=== PATIENT | female | born 1945 | race Caucasian/White ===

== ENCOUNTER 2017-11-27 15:12 | Emergency (ER) | payer OTHER ==
[~2017-11-27] VITALS: Ht 157.5 cm; Wt 70.3 kg
[~2017-11-27 15:12] MED LIST: DUONEB; GINGER ROOT; LOSARTAN POTAS100 MG PO; NIACIN500 M2 PO; TUMERIC; VITAMIN B-121000 MCG PO; VITAMIN D35000 UNI1; XARELTO20 MG; [UNRECOGNIZED DRUG - OTHER] NEB
[2017-11-27] MEDS ORDERED: CLONIDINE HCL 0.1 MG TAB PO NR (15:45)
[2017-11-27 16:27] LABS: BILIRUBIN,URINE NEGATIVE (NEGATIVE); CLARITY,URINE CLEAR (CLEAR); COLOR,URINE YELLOW (YELLOW); KETONES,URINE NEGATIVE (NEGATIVE); LEUKOCYTE ESTERASE ,URINE 2+ (NEGATIVE); NITRITE,URINE NEGATIVE (NEGATIVE); PROTEIN,URINE DIPSTICK NEGATIVE (NEGATIVE); URINE UROBILINOGEN 0.2 mg/dL (0.2 - 1)
[2017-11-27 16:52] LABS: RBC,URINE 0-5 /HPF (0-5)
[2017-11-27 16:54] LABS: BACTERIA,URINE FEW /HPF; EPITHELIAL CELLS,URINE MODERATE /LPF
[2017-11-27 17:15] VITALS: BP 143/73
== END 2017-11-27 17:52 | disposition home or self-care (01) ==
LOC: ER 15:12
DX: R51 Headache (principal); I10 Essential (primary) hypertension; E11.9 Type 2 diabetes mellitus without complications; J44.9 Chronic obstructive pulmonary disease, unspecified; Z86.73 Personal history of transient ischemic attack (TIA), and cerebral infarction without residual deficits
CPT/HCPCS: 81001; 99283

== ENCOUNTER 2017-12-15 06:31 | Inpatient (IN) | payer MEDICARE, OTHER ==
[2017-12-12 13:37] LABS: BASOPHILS # (AUTO) 0.1 (0.0-0.1); BASOPHILS % 0.7 % (0.0-1.0); EOSINOPHILS # (AUTO) 0.1 (0.0-0.4); EOSINOPHILS % 1.5 % (0.0-6.0); HEMATOCRIT 41.7 % (34.2-44.1); HEMOGLOBIN 13.4 g/dL (12.0-16.0); LYMPHOCYTES # (AUTO) 2.1 (1.0-3.2); LYMPHOCYTES % 24.4 % (18.0-39.1); MEAN CORPUSCULAR HEMOGLOBIN 31.5 pg (28-32); MEAN CORPUSCULAR HGB CONC 32.1 g/dL (31-35); MEAN CORPUSCULAR VOLUME 97.9 fL (81-99); MONOCYTES # (AUTO) 0.7 (0.2-0.8); MONOCYTES % 8.3 % (4.4-11.3); NEUTROPHILS # (AUTO) 5.5 (2.1-6.9); NEUTROPHILS % 64.5 % (38.7-80.0); PLATELET COUNT 192 x10e3/uL (140-360); RED BLOOD COUNT 4.26 x10e6/uL (3.6-5.1); RED CELL DISTRIBUTION WIDTH 13.5 % (11.7-14.4)
[2017-12-12 13:45] LABS: INR 1.61
[2017-12-12 13:46] LABS: PARTIAL THROMBOPLASTIN TIME 33.4 seconds (23.8-35.5)
[2017-12-12 13:51] LABS: ANION GAP 14.1 mmol/L (8-16); CREATININE, SERUM 1.26 mg/dL (0.57-1.11); POTASSIUM 4.1 mmol/L (3.5-5.1)
--- NOTE | 2017-12-12 14:37 | Diagnostic Imaging Report ---
PROCEDURE: X-RAY CHEST, TWO VIEWS COMPARISON: Patients [facility], DX, CHEST 2 VIEWS, 03/10/2017, 10:49. INDICATIONS: CAROTID STENOSIS FINDINGS: LUNGS: Stable pulmonary hyperinflation. No mass or infiltrate. PLEURA: No effusions or pneumothorax. Bilateral apical pleural parenchymal thickening is stable. HEART \T\ MEDIASTINUM: The heart is within normal size-limits. Calcifications of the aortic arch are stable. BONES \T\ SOFT TISSUES: Diffuse demineralization. Degenerative changes of the spine are stable. No focal osseous lesions. CONCLUSION: Stable chest. No acute thoracic abnormality. Dictated by: Emili Azevedo M.D. on 12/12/2017 at 14:37 Electronically approved by: Emili Azevedo M.D. on 12/12/2017 at 14:37
[2017-12-15] VITALS (26 sets, daily range): BP systolic 115–183; BP diastolic 55–96
[~2017-12-15] VITALS: Ht 154.9 cm; Wt 70.3 kg
[~2017-12-15 06:31] MED LIST changes: +ASPIRIN81 MG; +CURCUMIN1 GM; +D-RIBOSE1 GM; +GELATIN SPONGE SZ 100 ONE; +GLUTATHIONE25 GM; +HEPARIN SOD (PORCINE) 1000 UNIT/ML 30ML ONE; +HEPARIN SOD/SOD CHLORIDE 1,000 ML ONE; +LIDOCAINE HCL 1% 2 ML AMP ONE; +LISINOPRIL10 MG PO; +MUPIROCIN 2% OINT 22 GM TUBE ONE; +PROTAMINE SULFATE 10 MG/ML 5 ML VIAL ONE; +SODIUM CHLORIDE 0.9% 500ML 500 ML ONE; +SYMBICORT 16010.2 GM; +THROMBIN FOR SOLN 5,000 UNIT VIAL ONE; +VITAMIN A25000 UNIT; +[UNRECOGNIZED DRUG - OTHER]
--- OUTSIDE RECORDS SUMMARY | 2017-12-15 06:34 | XMS REPORT ---
Author [facility] Address Unknown Phone Unavailable Care Team Providers Care Dry Heat Cabinet Attendant Name Role Phone MARIS SHINE Unavailable Unavailable Problems This patient has no known problems. Allergies, Adverse Reactions, Alerts This patient has no known allergies or adverse reactions. Medications This patient has no known medications. Results Test Description Test Time Test Comments Text Results Atomic Results Result Comments CHEST 2 VIEWS [place] [address] Patient Name: PIERRE KAPOOR MR #: [id number] : 1945 Age/Sex: 72/F Req #: [id number] Adm Physician: Ordered by: MARIS SHINE MD Report #: [id number] Location: OR Room/Bed: Procedure: [id number] DX/CHEST 2 VIEWS Exam Date: 12/12/17 Exam Time: 1250 REPORT STATUS: Signed PROCEDURE: X-RAY CHEST, TWO VIEWS COMPARISON: [facility], DX, CHEST 2 VIEWS, 03/10/2017, 10:49. INDICATIONS: CAROTID STENOSIS FINDINGS: LUNGS: Stable pulmonary hyperinflation. No mass or infiltrate. PLEURA: No effusions or pneumothorax. Bilateral apical pleural parenchymal thickening is stable. HEART T MEDIASTINUM: The heart is within normal size-limits. Calcifications of the aortic arch are stable. BONES T SOFT TISSUES : Diffuse demineralization. Degenerative changes of the spine are stable. No focal osseous lesions. CONCLUSION: Stable chest. No acute thoracic abnormality. Dictated by: Jaspal Azevedo M.D. on 2017 at 14:37 Electronically approved by: Jaspal Azevedo M.D. on 2017 at 14:37 Dictated By: JASPAL AZEVEDO MD [id number] Transcribed By : JAMILA on 12/12/17 1437 COPY TO: MARIS SHINE MD
--- OUTSIDE RECORDS SUMMARY | 2017-12-15 06:34 | XMS REPORT | Continuity of Care Document ---
Author Author [facility] Organization [facility] Address [address] [place] [address] Phone Unavailable Care Team Providers Care Cutting Table Operator Name Role Phone SHERRYDARWIN CAMARGO PCP Insurance Providers Guarantor Sophia Nair Address [address] [place] [address] [address] [place] [address] Email [email or web address] Payer [facility] Policy Number [id number] Subscriber's Name KoreySophia sierra Relationship 18 Self / Same As Patient Group Number [id number] Group Name [employer] - Medicare Advantage Divis Effective Date 17 Advance Directives Directive Response Recorded Date/Time Does the patient have an advance directive? Yes 12/30/16 11:02am If yes, is advance directive on file with [facility]? No 12/08/15 8:26am If not on file with [facility] will patient provide a copy? No 01/19/17 10:30am Do you have a Directive to Physician? Yes 11/27/17 4:40pm Do you have a Medical Power of Social Director? Yes 11/27/17 4:40pm Do you have an out of hospital Do Not Resuscitate Order? No 11/27/17 4:40pm Do you have any special needs we should be aware of? No 11/27/17 4:40pm Do you have a support person here with you today? Yes 11/27/17 4:40pm Did patient receive Notice of Privacy Practices? Yes 11/27/17 4:40pm Did patient receive patient rights and responsibilities? Yes 11/27/17 4:40pm Problems No problem information available. Medications Current Home Medications Medication Dose Units Route Directions Days Qty Instructions Start Date Cholecalciferol (Vitamin D3) (Vitamin D3) 5,000 Unit Tablet Daily Cyanocobalamin (Vitamin B-12) 1,000 Mcg Tab 1,000 Mcg Oral Daily 30 Tab Duoneb Unit Dose Four Times Daily IPRATROPIUM 0.5 MG/ ALBUTEROL 3 MG Renetta Root 500 Mg Daily Losartan Potassium 100 Mg Tablet 100 Mg Oral Daily Niacin 500 Mg Tabsr 500 Mg Oral Daily 30 Tab Rivaroxaban (Xarelto) 20 Mg Tablet Daily Tumeric 500 Mg Daily Social History Smoking Status Start Date Stop Date Former smoker Hospital Discharge Instructions No hospital discharge instruction information available. Plan of Care Discharge Date 11/27/17 5:52pm Disposition HOME, SELF-CARE Condition at Discharge Stable Instructions/Education Provided Hypertension Urinary Tract Infection - Women Forms Provided Work/School Excuse Prescriptions See Medication Section Referrals DARWIN POWELL DO Address: [address] [place] [id number] Additional Instructions/Education 1. follow up with your doctor in 1-2 days without fail 2. return to ed as needed Functional Status No functional status information available. Allergies, Adverse Reactions, Alerts Allergen Type Severity Reaction Status Last Updated Lisinopril Allergy Unknown nasal airway swelling Active 11/27/17 penicillin Allergy Unknown RASH Active 01/21/17 TETANUS Allergy Unknown SWELLING, REDNESS Active 01/21/17 Immunizations No immunization information available. Vital Signs Acute Vital Signs Vital Response Date/Time Pulse Pulse Rate (adult) 65 bpm (60 - 90) 11/27/2017 5:15pm Respiratory Rate 18 bpm (12 - 24) 11/27/2017 5:15pm Blood Pressure 143/73 mm Hg 11/27/2017 5:15pm Height 5 ft 2 in 11/27/2017 3:20pm Weight 155 lb 11/27/2017 3:20pm Body Mass Index 28.3 kg/m^2 11/27/2017 3:20pm Results Laboratory Results Test Name Result Units Flags Reference Collection Date/Time Result Date/ Time Comments White Blood Count 6.38 x10e3/uL 4.8-10.8 03/10/2017 10:45am 03/10/2017 10:53am Red Blood Count 3.87 x10e6/uL 3.6-5.1 03/10/2017 10:45am 03/10/2017 10: 53am Hemoglobin 12.8 g/dL 12.0-16.0 03/10/2017 10:4503/10/2017 10:53am Hematocrit 38.5 % 34.2-44.1 03/10/2017 10:45am 03/10/2017 10:53am Mean Corpuscular Volume 99.5 fL H 81-99 03/10/2017 10:45am 03/10/2017 10 :53am Mean Corpuscular Hemoglobin 33.1 pg H 28-32 03/10/2017 10:45am 2016 10:53am Mean Corpuscular Hemoglobin Concent 33.2 g/dL 31-35 03/10/2017 10:45am 03/10/2017 10:53am Red Cell Distribution Width 13.3 % 11.7-14.4 03/10/2017 10:45am 2016 10:53am Platelet Count 178 x10e3/uL 140-360 03/10/2017 10:45am 03/10/2017 10: 53am Neutrophils (%) (Auto) 56.3 % 38.7-80.0 03/10/2017 10:45am 03/10/2017 10:53am Lymphocytes (%) (Auto) 30.4 % 18.0-39.1 03/10/2017 10:4503/10/2017 10:53am Monocytes (%) (Auto) 9.9 % 4.4-11.3 03/10/2017 10:4503/10/2017 10: 53am Eosinophils (%) (Auto) 2.2 % 0.0-6.0 03/10/2017 10:4503/10/2017 10: 53am Basophils (%) (Auto) 0.9 % 0.0-1.0 03/10/2017 10:45am 03/10/2017 10: 53am IM GRANULOCYTES % 0.3 % 0.0-1.0 03/10/2017 10:45am 03/10/2017 10:53am Neutrophils # (Auto) 3.6 2.1-6.9 03/10/2017 10:45am 03/10/2017 10: 53am Lymphocytes # (Auto) 1.9 1.0-3.2 03/10/2017 10:45am 03/10/2017 10: 53am Monocytes # (Auto) 0.6 0.2-0.8 03/10/2017 10:45am 03/10/2017 10:53am Eosinophils # (Auto) 0.1 0.0-0.4 03/10/2017 10:45am 03/10/2017 10: 53am Basophils # (Auto) 0.1 0.0-0.1 03/10/2017 10:45am 03/10/2017 10:53am Absolute Immature Granulocyte (auto 0.02 x10e3/uL 0-0.1 03/10/2017 10: 45am 03/10/2017 10:53am Prothrombin Time 13.0 seconds 11.9-14.5 03/14/2017 5:51am 03/14/2017 6: 13am Prothromb Time International Ratio 0.94 03/14/2017 5:51am 2016 6:13am Oral Anticoagulant Therapy INR Values: 1. Low Intensity Therapy 1.5 - 2.0 2. Moderate Intensity Therapy 2.0 - 3.0 3. High Intensity Therapy(1) 2.5 - 3.5 4. High Intensity Therapy(2) 3.0 - 4.0 5. Panic Value INR > 5.0 Activated Partial Thromboplast Time 29.7 seconds 23.8-35.5 03/14/2017 5: 51am 03/14/2017 6:13am Urine Color YELLOW YELLOW 11/27/2017 3:42pm 11/27/2017 4:29pm Urine Clarity CLEAR CLEAR 11/27/2017 3:42pm 11/27/2017 4:29pm Urine Specific Josephine 1.015 1.010-1.025 11/27/2017 3:42pm 2017 4:29pm Urine pH 5 5 - 7 11/27/2017 3:42pm 11/27/2017 4:29pm Urine Leukocyte Esterase 2+ H NEGATIVE 11/27/2017 3:42pm 11/27/2017 4: 29pm Urine Nitrite NEGATIVE NEGATIVE 11/27/2017 3:42pm 11/27/2017 4:29pm Urine Protein NEGATIVE NEGATIVE 11/27/2017 3:42pm 11/27/2017 4:29pm Urine Glucose (UA) NEGATIVE NEGATIVE 11/27/2017 3:42pm 11/27/2017 4: 29pm Urine Ketones NEGATIVE NEGATIVE 11/27/2017 3:42pm 11/27/2017 4:29pm Urine Urobilinogen 0.2 mg/dL 0.2 - 1 11/27/2017 3:42pm 11/27/2017 4: 29pm Urine Bilirubin NEGATIVE NEGATIVE 11/27/2017 3:42pm 11/27/2017 4: 29pm Urine Blood TRACE H NEGATIVE 11/27/2017 3:42pm 11/27/2017 4:29pm Urine WBC 11-20 /HPF H 0-5 11/27/2017 3:42pm 11/27/2017 4:54pm Urine RBC 0-5 /HPF 0-5 11/27/2017 3:42pm 11/27/2017 4:54pm Urine Bacteria FEW /HPF NONE 11/27/2017 3:42pm 11/27/2017 4:54pm Urine Epithelial Cells MODERATE /LPF NONE 11/27/2017 3:42pm 11/27/2017 4:54pm Procedures Procedure Status Date Provider(s) SHOULDER ARTHROSCOPY/SURGERY Completed 03/14/17 JOÃO TYSON MD ARTHROSCOP ROTATOR CUFF REPR Completed 03/14/17 JOÃO TYSON MD X-ray of chest, two views Active 03/10/17 JOÃO TYSON MD Encounters Encounter Location Arrival/Admit Date Discharge/Depart Date Attending Provider Departed Emergency Room [facility] 11/27/17 3:12pm 5:52pm JOÃO KUMARI MD Registered Surgical Day Care [facility] 03/14/17 5:09am JOÃO TYSON MD
[2017-12-15 07:10] LABS: PROTHROMBIN TIME 12.4 seconds (11.9-14.5)
[2017-12-15] MEDS ORDERED: VANCOMYCIN 1GM/NS 250 ML 250 ML ONE (07:44)
[2017-12-15] MEDS ORDERED: LABETALOL HCL 20 ML ONE (10:57)
[2017-12-15 11:13] LABS: BASOPHILS % 0.5 % (0.0-1.0); EOSINOPHILS # (AUTO) 0.1 (0.0-0.4); EOSINOPHILS % 0.8 % (0.0-6.0); HEMATOCRIT 32.8 % (34.2-44.1); HEMOGLOBIN 10.7 g/dL (12.0-16.0); LYMPHOCYTES % 11.6 % (18.0-39.1); MEAN CORPUSCULAR HGB CONC 32.6 g/dL (31-35); MEAN CORPUSCULAR VOLUME 98.2 fL (81-99); MONOCYTES # (AUTO) 0.2 (0.2-0.8); MONOCYTES % 2.7 % (4.4-11.3); NEUTROPHILS # (AUTO) 7.1 (2.1-6.9); NEUTROPHILS % 83.7 % (38.7-80.0); PLATELET COUNT 157 x10e3/uL (140-360); RED BLOOD COUNT 3.34 x10e6/uL (3.6-5.1); RED CELL DISTRIBUTION WIDTH 13.4 % (11.7-14.4)
[2017-12-15] MEDS ORDERED: MORPHINE SULFATE 2 MG/ML SYR IV PRN (11:15)
[2017-12-15] MEDS ORDERED: HYDROCODONE/APAP 5MG-325MG TAB PO PRN (11:15)
[2017-12-15] MEDS ORDERED: LABETALOL HCL 5 MG/ML 20ML VIAL IV PRN (11:15)
[2017-12-15 11:35] LABS: ANION GAP 11.1 mmol/L (8-16)
[2017-12-15 11:37] LABS: POTASSIUM 5.1 mmol/L (3.5-5.1)
[2017-12-15] MEDS: SODIUM CHLORIDE 0.9% 1000ML 1,000 ML IV SCH (12:00)
--- NOTE | 2017-12-15 12:37 | Operative Report ---
DATE OF PROCEDURE: December 15, 2017 STEEL CRANE OPERATOR: Francesco Harris CST PREOPERATIVE DIAGNOSIS: Severe left carotid stenosis. POSTOPERATIVE DIAGNOSIS: Severe left carotid stenosis. TITLE OF OPERATION: Left carotid endarterectomy. DESCRIPTION OF OPERATION: After the satisfactory accomplishment of general anesthesia, the patient's left neck was prepped and draped in sterile fashion. A standard left carotid incision was made along the anterior border of the sternomastoid muscle. The incision was carried down through the subcutaneous tissues and fascia to expose the left common carotid artery. The vessel was dissected free from the surrounding tissues and looped with a vessel loop. The dissection was carried distally to expose both the internal carotid artery and the external carotid artery and its branches. Care was taken to identify and preserve all nerve structures in the region. Systemic heparin was given through a central vein cannula for the purposes of anticoagulation. The common, external and internal carotid arteries were briefly crossclamped. A long incision was made in the common carotid artery and carried distally through the bifurcation and well up into the internal carotid artery. A severely obstructing atherosclerotic plaque was quickly encountered. The plaque was removed using standard endarterectomy techniques. Following the removal of the plaque, an indwelling shunt was placed in the common carotid artery proximally and the internal carotid artery distally, thereby reestablishing blood flow to the left side of the brain for the remainder of the case. The surface of the vessel was then carefully smoothed, and all loose debris was removed. Heparinized saline flushes were routinely employed. A previously constructed Dacron patch was brought into the operative field. The patch was used to close the arteriotomy site. Running 7-0 Prolene was used for this patch closure. Prior to completing the closure, the shunt was removed and the vessel and graft were flushed free from all air and debris. Once the sutures were tied, excellent pulses were located within the patch area and beyond. Protamine was then given to counteract the effects of the heparin. All bleeding points were cauterized, ligated or oversewn. The wound was thoroughly irrigated with antibiotic solution. The wound was then closed in layers with interrupted 2-0 Vicryl for the deep tissues and Monocryl subcuticular stitches for the skin. The patient tolerated the procedure well and was returned to the intensive care unit in good condition. Job#: [id number] EV
[2017-12-15] MEDS ORDERED: LISINOPRIL20 MG PO (13:58)
[2017-12-15] MEDS: LISINOPRIL 20 MG TAB PO SCH (14:59)
[2017-12-15] MEDS ORDERED: MIDAZOLAM HCL 2 MG/2 ML VIAL ONE (15:04)
[2017-12-15] MEDS ORDERED: FENTANYL CITRATE/PF 100MCG/2 ML INJ ONE (15:04)
--- NOTE | 2017-12-15 16:43 | Consultation ---
DATE OF CONSULTATION: December 15, 2017 PULMONARY/CRITICAL CARE CONSULTATION REFERRING PHYSICIAN: Dr. Haines. CHIEF COMPLAINT: A prior history of COPD and recent carotid endarterectomy. HISTORY OF PRESENT ILLNESS: The patient is a 72-year-old woman. She has a history of severe COPD. She also has peripheral vascular disease as well as carotid stenosis. She presented to Dr. Haines with intermittent numbness and severe carotid stenosis. She underwent a carotid endarterectomy today. The procedure went well. She did not have any excessive blood loss. She has no neurological complaints. At this time her breathing is at baseline. She is not complaining of cough nor wheezing. She does not complain of chest pain. PAST MEDICAL HISTORY: 1. Peripheral vascular disease. 2. COPD. PAST SURGICAL HISTORY: Status post carotid endarterectomy. SOCIAL HISTORY: The patient is not actively smoking nor drinking. FAMILY HISTORY: Family history is noncontributory. REVIEW OF SYSTEMS: The patient is afebrile. There is no headache. She is complaining of some mild postsurgical pain at the surgical site. She does not have chest pain. There is no abdominal pain. Her dyspnea is at baseline. She has no leg edema. PHYSICAL EXAMINATION: VITAL SIGNS: The patient is afebrile. The vital signs are stable. HEENT: Examination shows no facial swelling or erythema. The nasal mucosa is normal. The oropharynx is normal. LYMPHATIC: Examination shows no submandibular, cervical or supraclavicular adenopathy. CARDIAC: Exam reveals a regular rate and rhythm with a normal S1 and S2. There are no murmurs or rubs. LUNGS: Auscultation reveals rhonchorous breath sounds bilaterally. There is no wheezing. ABDOMEN: Is soft and nontender. There is no rebound or guarding. EXTREMITIES: Shows no leg edema or calf tenderness. There is no cyanosis or clubbing. SKIN: Examination shows no rashes. NEUROLOGIC: Exam shows no focal abnormalities. LABORATORY DATA: The hemoglobin is 10.7, and the white blood cell count is 8.4. Electrolytes are within normal limits. IMPRESSIONS: 1. Chronic obstructive pulmonary disease. 2. Recent carotid endarterectomy. 3. Hypertension. PLAN: 1. The patient will be continued on Symbicort twice a day. 2. She will have albuterol as needed as a rescue medication. 3. Postoperative wound care. 4. Neurological monitoring after her carotid endarterectomy. 5. Monitor blood pressure. Job#: [id number] EV
[2017-12-15] MEDS ORDERED: VANCOMYCIN 1GM/NS 250 ML 250 ML IV ONE (18:00)
[2017-12-15] MEDS ORDERED: EPHEDRINE SULFATE INJ 50 MG/10 ML SYR ONE (18:29)
[2017-12-15] MEDS ORDERED: PROPOFOL IV EMULSION 10 MG/ML 20 ML VIAL ONE (18:29)
[2017-12-15] MEDS ORDERED: ONDANSETRON HCL INJ 2 MG/ML VIAL ONE (18:29)
[2017-12-15] MEDS ORDERED: ROCURONIUM BROMIDE 10 MG/ML 5ML VIAL ONE (18:29)
[2017-12-15] MEDS ORDERED: SEVOFLURANE INHAL SOLN 250 ML PEN BTL ONE (18:29)
[2017-12-15] MEDS ORDERED: DEXAMETHASONE SOD PHOS INJ 4 MG/ML VIAL ONE (18:29)
[2017-12-15] MEDS ORDERED: PHENYLEPHRINE HCL 1% 10 MG/ML VIAL ONE (18:29)
[2017-12-15] MEDS ORDERED: LIDOCAINE HCL 2% LOCAL INJ 5 ML SDV VIAL INJ ONE (18:29)
[2017-12-15] MEDS: BUDESONIDE/FORMOTEROL 160/4.5MCG INHALER INH SCH (19:00)
[2017-12-15] MEDS: ALBUTEROL SULF 0.083% NEB SOLN 3 ML NEB NEB PRN (19:45)
[2017-12-15] MEDS ORDERED: RIVAROXABAN 20 MG TABLET PO SCH (21:00)
[2017-12-16] VITALS (20 sets, daily range): BP systolic 117–159; BP diastolic 53–86
[2017-12-16 06:05] LABS: BASOPHILS % 0.3 % (0.0-1.0); EOSINOPHILS % 0.4 % (0.0-6.0); HEMATOCRIT 34.7 % (34.2-44.1); HEMOGLOBIN 11.2 g/dL (12.0-16.0); LYMPHOCYTES % 18.1 % (18.0-39.1); MEAN CORPUSCULAR HEMOGLOBIN 32.2 pg (28-32); MEAN CORPUSCULAR HGB CONC 32.3 g/dL (31-35); MEAN CORPUSCULAR VOLUME 99.7 fL (81-99); MONOCYTES # (AUTO) 1.1 (0.2-0.8); MONOCYTES % 9.6 % (4.4-11.3); NEUTROPHILS # (AUTO) 7.8 (2.1-6.9); NEUTROPHILS % 71.2 % (38.7-80.0); PLATELET COUNT 163 x10e3/uL (140-360); RED BLOOD COUNT 3.48 x10e6/uL (3.6-5.1); RED CELL DISTRIBUTION WIDTH 13.5 % (11.7-14.4)
[2017-12-16 06:36] LABS: ANION GAP 11.3 mmol/L (8-16); BLOOD UREA NITROGEN 19 mg/dL (7-26); BUN/CREATININE RATIO 23 (6-25); CALCIUM 8.7 mg/dL (8.4-10.2); CARBON DIOXIDE 25 mmol/L (22-29); CHLORIDE 106 mmol/L (98-107); CREATININE, SERUM 0.82 mg/dL (0.57-1.11); EST GLOMERULAR FILTRATION RATE > 60 ML/MIN (60-); GLUCOSE 121 mg/dL (74-118); POTASSIUM 4.3 mmol/L (3.5-5.1); SODIUM 138 mmol/L (136-145)
[2017-12-16] MEDS: SODIUM CHLORIDE 0.9% 1000ML 1,000 ML IV SCH ×2 (08:00→10:15)
[2017-12-16] MEDS ORDERED: NIACIN 500 MG TABSR PO SCH (09:00)
[2017-12-16] MEDS ORDERED: CYANOCOBALAMIN 1,000 MCG TAB PO SCH (09:00)
[2017-12-16] MEDS ORDERED: RIVAROXABAN 15 MG TABLET PO SCH (09:00)
[2017-12-16] MEDS ORDERED: ENOXAPARIN SOD INJ 40 MG/0.4 ML SYR SC SCH (09:00)
[2017-12-16] MEDS ORDERED: ASPIRIN 81 MG CHEW TAB PO SCH (09:00)
[2017-12-16] MEDS: LISINOPRIL 20 MG TAB PO SCH (10:16)
[2017-12-16] MEDS: ALBUTEROL SULF 0.083% NEB SOLN 3 ML NEB NEB PRN (13:52)
[2017-12-16] MEDS: BUDESONIDE/FORMOTEROL 160/4.5MCG INHALER INH SCH (15:16)
[2017-12-16] MEDS ORDERED: MUPIROCIN 2% OINT 22 GM TUBE TOP SCH (17:00)
--- NOTE | 2018-02-22 09:00 | Discharge Summary ---
Ms. Nair is a 72-year-old female who was admitted electively on December 15, 2017 with severe left carotid stenosis. On the date of her admission, she underwent an uncomplicated left carotid endarterectomy using a shunt and a Dacron patch for the closure of the artery. She made a smooth and uneventful recovery. She spent 1 day in the intensive care unit, and on the afternoon of December 16, 2017, she was deemed ready for discharge home from the hospital. Her wounds were satisfactory and her pain was well managed. Her diet and exercise tolerance were back to normal. Her discharge medicines included the same medicines she was taking preoperatively. She was asked to return to the surgery clinic in 2 weeks' time for further followup. MARIS SHINE MD Job#: [id number]
== END 2017-12-16 19:00 | disposition home or self-care (01) | DRG 39 ==
LOC: OR 06:31 → ICU 11:18
PROVIDERS: ADMIT Thoracic Surgery (Cardiothoracic Vascular Surgery); ATTEND Thoracic Surgery (Cardiothoracic Vascular Surgery)
PROC: 03CJ0ZZ Extirpation of Matter from Left Common Carotid Artery, Open Approach (ICD-10-PCS; principal; 2017-12-15 07:30)
DX: I65.22 Occlusion and stenosis of left carotid artery (principal); J44.9 Chronic obstructive pulmonary disease, unspecified; I10 Essential (primary) hypertension; F17.210 Nicotine dependence, cigarettes, uncomplicated; E66.9 Obesity, unspecified; Z68.29 Body mass index [BMI] 29.0-29.9, adult
CPT/HCPCS: 36415; 71046; 80048; 80051; 85025; 85610; 85730; 86850; 86900; 86920; 88304; 88311; 93005; 94640; C1768; J1100; J1644; J2001; J2250; J2370; J2405; J2720; J3370; J7030; J7040

== ENCOUNTER 2018-08-21 05:40 | Inpatient (IN) | payer OTHER ==
[2018-08-16 11:29] LABS: BASOPHILS # (AUTO) 0.1 (0.0-0.1); BASOPHILS % 0.6 % (0.0-1.0); EOSINOPHILS # (AUTO) 0.1 (0.0-0.4); EOSINOPHILS % 1.1 % (0.0-6.0); HEMATOCRIT 37.9 % (34.2-44.1); HEMOGLOBIN 12.4 g/dL (12.0-16.0); LYMPHOCYTES # (AUTO) 1.5 (1.0-3.2); LYMPHOCYTES % 17.9 % (18.0-39.1); MEAN CORPUSCULAR HEMOGLOBIN 31.5 pg (28-32); MEAN CORPUSCULAR HGB CONC 32.7 g/dL (31-35); MEAN CORPUSCULAR VOLUME 96.2 fL (81-99); MONOCYTES # (AUTO) 0.7 (0.2-0.8); MONOCYTES % 8.4 % (4.4-11.3); NEUTROPHILS # (AUTO) 5.7 (2.1-6.9); NEUTROPHILS % 71.1 % (38.7-80.0); PLATELET COUNT 195 x10e3/uL (140-360); RED BLOOD COUNT 3.94 x10e6/uL (3.6-5.1); RED CELL DISTRIBUTION WIDTH 13.4 % (11.7-14.4)
[2018-08-16 11:32] LABS: INR 1.73; PROTHROMBIN TIME 21.6 seconds (11.9-14.5)
[2018-08-16 11:33] LABS: PARTIAL THROMBOPLASTIN TIME 37.8 seconds (23.8-35.5)
[2018-08-16 11:37] LABS: ANION GAP 15.2 mmol/L (8-16); CALCIUM 10.1 mg/dL (8.4-10.2); CREATININE, SERUM 1.14 mg/dL (0.57-1.11); POTASSIUM 4.2 mmol/L (3.5-5.1)
[2018-08-21] VITALS (49 sets, daily range): BP systolic 107–175; BP diastolic 40–83
[~2018-08-21] VITALS: Ht 157.5 cm; Wt 77.8 kg
[~2018-08-21 05:40] MED LIST changes: +AMLODIPINE BES2.5 MG PO; -CURCUMIN1 GM; +CURCUMIN1 GM PO; -GELATIN SPONGE SZ 100 ONE; -HEPARIN SOD (PORCINE) 1000 UNIT/ML 30ML ONE; -HEPARIN SOD/SOD CHLORIDE 1,000 ML ONE; -LIDOCAINE HCL 1% 2 ML AMP ONE; +LISINOPRIL20 MG PO; -MUPIROCIN 2% OINT 22 GM TUBE ONE; -PROTAMINE SULFATE 10 MG/ML 5 ML VIAL ONE; -SODIUM CHLORIDE 0.9% 500ML 500 ML ONE; -SYMBICORT 16010.2 GM; +SYMBICORT 16010.2 GM INH; -THROMBIN FOR SOLN 5,000 UNIT VIAL ONE; -VITAMIN D35000 UNI1; +VITAMIN D35000 UNI1 PO; +XARELTO15 MG PO
[2018-08-21] MEDS ORDERED: LIDOCAINE HCL 1% 2 ML AMP ONE (06:28)
[2018-08-21] MEDS ORDERED: MUPIROCIN 2% OINT 22 GM TUBE ONE (06:28)
[2018-08-21] MEDS ORDERED: PROTAMINE SULFATE 10 MG/ML 5 ML VIAL ONE (06:28)
[2018-08-21] MEDS ORDERED: THROMBIN FOR SOLN 5,000 UNIT VIAL ONE (06:28)
[2018-08-21] MEDS ORDERED: GELATIN SPONGE 12-7MM ONE (06:29)
[2018-08-21] MEDS ORDERED: HEPARIN SOD (PORCINE) 1000 UNIT/ML 30ML ONE (06:29)
[2018-08-21] MEDS ORDERED: SODIUM CHLORIDE 0.9% 500ML 500 ML ONE (06:29)
[2018-08-21] MEDS ORDERED: NICOTINE PATCH1 EAC5 TD (06:55)
[2018-08-21 07:07] LABS: INR 0.93; PARTIAL THROMBOPLASTIN TIME 28.6 seconds (23.8-35.5); PROTHROMBIN TIME 13.3 seconds (11.9-14.5)
[2018-08-21] MEDS ORDERED: HEPARIN SOD/SOD CHLORIDE 1,000 ML ONE (07:22)
[2018-08-21] MEDS ORDERED: VANCOMYCIN 1GM/NS 250 ML 250 ML ONE (07:28)
[2018-08-21] MEDS ORDERED: MORPHINE SULFATE 2 MG/ML SYR IV PRN ×3 (11:00→11:30)
[2018-08-21] MEDS ORDERED: LABETALOL HCL 5 MG/ML 20ML VIAL IV PRN ×2 (11:00→11:45)
[2018-08-21] MEDS ORDERED: HYDROCODONE/APAP 5MG-325MG TAB PO PRN ×2 (11:30)
[2018-08-21] MEDS ORDERED: ONDANSETRON HCL 4 MG ORAL DISINTEGRATING TAB SL PRN (11:45)
[2018-08-21] MEDS ORDERED: SODIUM CHLORIDE 0.9% 1000ML 1,000 ML ONE (11:46)
[2018-08-21 12:18] LABS: BASOPHILS # (AUTO) 0.1 (0.0-0.1); BASOPHILS % 0.6 % (0.0-1.0); EOSINOPHILS % 0.3 % (0.0-6.0); HEMATOCRIT 37.2 % (34.2-44.1); HEMOGLOBIN 11.8 g/dL (12.0-16.0); LYMPHOCYTES # (AUTO) 1.1 (1.0-3.2); LYMPHOCYTES % 10.1 % (18.0-39.1); MEAN CORPUSCULAR HEMOGLOBIN 31.6 pg (28-32); MEAN CORPUSCULAR HGB CONC 31.7 g/dL (31-35); MEAN CORPUSCULAR VOLUME 99.5 fL (81-99); MONOCYTES # (AUTO) 0.4 (0.2-0.8); MONOCYTES % 3.8 % (4.4-11.3); NEUTROPHILS % 84.4 % (38.7-80.0); PLATELET COUNT 139 x10e3/uL (140-360); RED BLOOD COUNT 3.74 x10e6/uL (3.6-5.1); RED CELL DISTRIBUTION WIDTH 13.5 % (11.7-14.4)
[2018-08-21 12:52] LABS: ANION GAP 11.6 mmol/L (8-16); POTASSIUM 4.6 mmol/L (3.5-5.1)
[2018-08-21] MEDS: SODIUM CHLORIDE 0.9% 1000ML 1,000 ML IV SCH ×2 (14:33→21:51)
--- NOTE | 2018-08-21 15:12 | Consultation ---
DATE OF CONSULTATION: PULMONARY/CRITICAL CARE CONSULTATION CHIEF COMPLAINT: Hypertension, amaurosis fugax, and recent carotid endarterectomy. HISTORY OF PRESENT ILLNESS: The patient is a 73-year-old woman. She has a history of hypertension and an episode of amaurosis fugax. Her subsequent evaluation showed a carotid artery stenosis on the right side. The patient went for carotid endarterectomy today. A shunt was used. A Dacron graft was used. There were no complications. The patient is now in the ICU. She does not complain of headache. She has no focal neurological problems. PAST MEDICAL HISTORY 1. Hypertension. 2. Severe peripheral vascular disease. 3. Hyperlipidemia. PAST SURGICAL HISTORY: Status post carotid endarterectomy. FAMILY HISTORY: Noncontributory. SOCIAL HISTORY: The patient is not a drinker. She is not an active smoker. ALLERGIES: SHE IS ALLERGIC TO PENICILLIN. REVIEW OF SYSTEMS: The patient is not complaining of fever or headache. She has no neck pain. She does have some incisional pain. She also has a swollen parotid gland that was discovered on surgery. That patient does not have any chest pain. There is no difficulty breathing. She has no nausea or vomiting. She has no focal neurological problems. PHYSICAL EXAMINATION VITAL SIGNS: The patient is afebrile. The vital signs are stable. HEENT: Examination shows no facial swelling or erythema. The nasal mucosa is normal. The oropharynx is normal. LYMPHATIC: Examination shows no submandibular, cervical or supraclavicular adenopathy. There is an enlarged parotid gland. CARDIAC: Exam reveals a regular rate and rhythm with normal S1 and S2. There are no murmurs or rubs. LUNGS: Auscultation of the lungs shows clear breath sounds bilaterally. There is no wheezing. ABDOMEN: Soft and nontender. There is no rebound or guarding. EXTREMITIES: Examination of the extremities shows no leg edema or calf tenderness. NEUROLOGIC: There are no focal neurological problems. IMPRESSIONS 1. Recent carotid endarterectomy. 2. Hypertension. 3. Peripheral vascular disease. 4. Parotid gland enlargement. PLANS 1. Observation for 24 hours in the intensive care unit. 2. Monitor blood pressure. 3. Monitor neurological status. 4. ENT to evaluate parotid gland. Job#: [id number] MARILYNN
--- NOTE | 2018-08-21 15:12 | Consultation ---
DATE OF CONSULTATION: August 21, 2018 REQUESTING PHYSICIAN: Dr. Haines REASON FOR CONSULT: Hypertension. Postsurgical followup. HISTORY OF PRESENT ILLNESS: Ms. Nair is a 73-year-old lady with past medical history as listed below. Underwent right carotid endarterectomy. She tolerated the procedure well. She denies any chest pain, shortness of breath or palpitations. She has a history of hypertension. She follows up with Dr. Jc Joshua at the office. REVIEW OF SYSTEMS CONSTITUTIONAL: Has some fatigue and weakness. HEENT: No headache, blurring of vision, seizures, syncope. CARDIOVASCULAR: No chest pain, dyspnea, orthopnea or PND. RESPIRATORY: No cough, fever or expectoration. GI: No abdominal pain, vomiting diarrhea. ALLERGIES: PENICILLIN AND TETANUS. MEDICATIONS: See list. PAST MEDICAL HISTORY 1. History of hypertension. 2. History of hyperlipidemia. 3. History of PAD. SOCIAL HISTORY: Does not smoke or drink. FAMILY HISTORY: Noncontributory. PHYSICAL EXAMINATION VITALS: Heart rate 64. Blood pressure is 137/52. Respiratory rate is 18. GENERAL: Moderately built and nourished lady. Awake, alert, not in any obvious distress. HEENT: Atraumatic. NECK: The right side of her neck is dressed. CHEST: Decreased air entry at the bases. No adventitious sounds appreciated. CARDIOVASCULAR: First and second heart sounds heard. A 2/6 systolic murmur heard at the left sternal border. ABDOMEN: Soft, nontender. EXTREMITIES: No edema. LABS: WBC 8.0, hemoglobin 12.4, hematocrit 37.9, platelets 195. Sodium is 134, potassium 4.2, chloride 99, BUN 32, creatinine 1.1. Glucose 121. EKG shows sinus rhythm at 98 beats per minute, rightward axis, PACs, nonspecific ST-T changes. IMPRESSION 1. Status post right carotid endarterectomy. 2. Hypertension. 3. Hyperlipidemia. 4. Peripheral arterial disease. PLAN 1. Patient tolerated the procedure well. 2. She is currently hemodynamically stable. 3. Recent echocardiogram showed normal LV function, ejection fraction 60%. 4. Continue with current management. As always, I appreciate and thank you very much for your referrals. Job#: [id number]
[2018-08-21] MEDS ORDERED: DEXAMETHASONE SOD PHOS INJ 4 MG/ML VIAL ONE (17:58)
[2018-08-21] MEDS ORDERED: PROPOFOL IV EMULSION 10 MG/ML 20 ML VIAL ONE (17:58)
[2018-08-21] MEDS ORDERED: LIDOCAINE HCL 2% LOCAL INJ 5 ML SDV VIAL INJ ONE (17:58)
[2018-08-21] MEDS ORDERED: SEVOFLURANE INHAL SOLN 250 ML PEN BTL ONE (17:58)
[2018-08-21] MEDS ORDERED: ACETAMINOPHEN 1000 MG/100 ML IV ONE (17:58)
[2018-08-21] MEDS ORDERED: ONDANSETRON HCL INJ 2 MG/ML VIAL ONE (17:58)
[2018-08-21] MEDS ORDERED: PHENYLEPHRINE HCL 1% 10 MG/ML VIAL ONE (17:58)
[2018-08-21] MEDS ORDERED: ROCURONIUM BROMIDE 10 MG/ML 5ML VIAL ONE (17:58)
[2018-08-21] MEDS ORDERED: VANCOMYCIN 1GM/NS 250 ML 250 ML IV ONE (18:00)
[2018-08-21] MEDS ORDERED: MIDAZOLAM HCL 2 MG/2 ML VIAL ONE (18:16)
[2018-08-21] MEDS ORDERED: FENTANYL CITRATE/PF 100MCG/2 ML INJ ONE (18:16)
[2018-08-22] VITALS (35 sets, daily range): BP systolic 119–161; BP diastolic 36–123
[2018-08-22 04:41] LABS: BASOPHILS % 0.2 % (0.0-1.0); EOSINOPHILS % 0.1 % (0.0-6.0); HEMATOCRIT 33.6 % (34.2-44.1); HEMOGLOBIN 10.4 g/dL (12.0-16.0); LYMPHOCYTES # (AUTO) 1.5 (1.0-3.2); LYMPHOCYTES % 15.4 % (18.0-39.1); MEAN CORPUSCULAR HEMOGLOBIN 30.5 pg (28-32); MEAN CORPUSCULAR VOLUME 98.5 fL (81-99); MONOCYTES # (AUTO) 1.1 (0.2-0.8); NEUTROPHILS % 72.8 % (38.7-80.0); PLATELET COUNT 155 x10e3/uL (140-360); RED BLOOD COUNT 3.41 x10e6/uL (3.6-5.1); RED CELL DISTRIBUTION WIDTH 13.6 % (11.7-14.4)
[2018-08-22 05:00] LABS: ANION GAP 11.2 mmol/L (8-16); POTASSIUM 4.2 mmol/L (3.5-5.1)
[2018-08-22] MEDS ORDERED: ALBUTEROL/IPRATROPIUM 3 ML NEB NEB PRN (08:45)
[2018-08-22] MEDS ORDERED: NON-FORMULARY MEDICATION (Amlodipine Besylate 2.5 MG) PO SCH (09:00)
[2018-08-22] MEDS ORDERED: AMLODIPINE BESYLATE 5 MG TAB PO SCH (09:00)
[2018-08-22] MEDS ORDERED: ENOXAPARIN SOD INJ 40 MG/0.4 ML SYR SC SCH (09:00)
[2018-08-22] MEDS ORDERED: BUDESONIDE/FORMOTEROL 160/4.5MCG INHALER INH SCH (09:00)
[2018-08-22] MEDS ORDERED: BACTROBAN15 G1 EXT (15:46)
[2018-08-22] MEDS ORDERED: TYLENOL WITH C1 EACH PO (15:47)
[2018-08-22] MEDS ORDERED: NIACIN 500 MG TABSR PO SCH (21:00)
[2018-08-22] MEDS ORDERED: NON-FORMULARY MEDICATION (Cholecalciferol (Vitamin D3) (Vitamin D3) 5,000 UNITS) PO SCH (21:00)
[2018-08-22] MEDS ORDERED: LISINOPRIL 20 MG TAB PO SCH (21:00)
[2018-08-22] MEDS ORDERED: CHOLECALCIFEROL 1,000 UNIT TAB PO SCH (21:00)
--- NOTE | 2018-08-24 16:11 | Operative Report ---
DATE OF PROCEDURE: August 21, 2018 MISSIONARY COORDINATOR: Francesco Harris PREOPERATIVE DIAGNOSIS: Right carotid stenosis. POSTOPERATIVE DIAGNOSIS: Right carotid stenosis. TITLE OF OPERATION: Right carotid endarterectomy. DESCRIPTION OF OPERATION: After the satisfactory accomplishment of general anesthesia, the patient's right neck was prepped and draped in a sterile fashion. A standard right carotid incision was made along the anterior border of the sternomastoid muscle. The incision was carried down through the subcutaneous tissues and fascia to expose the right common carotid artery. The vessel was dissected free from the surrounding tissues and looped with a vessel loop. The dissection was carried distally to expose the internal carotid artery and the external carotid artery and its branches. Care was taken to identify and preserve all nerve structures in the region. Systemic heparin was given through a central vein cannula for the purposes of anticoagulation. The common, external and internal carotid arteries were briefly cross-clamped. A long incision was made in the common carotid artery and carried distally through the bifurcation and well up into the internal carotid artery. An indwelling shunt was placed in the common carotid artery proximally and the internal carotid artery distally thereby re-establishing blood flow to the right side of the brain for the remainder of the case. A severely obstructing atherosclerotic plaque was then quickly removed using standard endarterectomy techniques. Following this, the surface of the vessel was smoothed, and all loose debris was carefully removed. Heparinized saline flushes were routinely employed. A previously constructed Dacron patch was brought into the operative field and used to close the arteriotomy site. Running 7-0 Prolene was used for this patch closure. Prior to completing the closure, the shunt was removed. The vessel was flushed free from all air and debris. Once the sutures were tied, excellent pulses were located within the patch area and beyond. Protamine was given to counteract the effects of the heparin. All bleeding points were cauterized, ligated or oversewn. The wound was thoroughly irrigated with antibiotic solution and closed in layers with interrupted 2-0 Vicryl for the deep tissues and Monocryl subcuticular stitches for the skin. The patient tolerated the procedure well and was returned to the intensive care unit in good condition. Job#: [id number]
== END 2018-08-22 19:20 | disposition home or self-care (01) | DRG 39 ==
LOC: OR 05:40 → PACU V 11:18 → ICU 11:54
PROVIDERS: ADMIT Thoracic Surgery (Cardiothoracic Vascular Surgery); ATTEND Thoracic Surgery (Cardiothoracic Vascular Surgery)
PROC: 03CK0ZZ Extirpation of Matter from Right Internal Carotid Artery, Open Approach (ICD-10-PCS; 2018-08-21)
PROC: 03UH0JZ Supplement Right Common Carotid Artery with Synthetic Substitute, Open Approach (ICD-10-PCS; 2018-08-21)
PROC: 03UK0JZ Supplement Right Internal Carotid Artery with Synthetic Substitute, Open Approach (ICD-10-PCS; 2018-08-21)
PROC: 03CH0Z6 (ICD-10-PCS; principal; 2018-08-21 07:30)
DX: I65.21 Occlusion and stenosis of right carotid artery (principal); I10 Essential (primary) hypertension; I73.9 Peripheral vascular disease, unspecified; E78.5 Hyperlipidemia, unspecified; K11.8 Other diseases of salivary glands; F17.210 Nicotine dependence, cigarettes, uncomplicated
CPT/HCPCS: 36415; 80048; 80051; 82948; 85025; 85610; 85730; 86850; 86900; 86920; 88304; 88311; 94640; C1768; J1100; J1644; J1650; J2001; J2250; J2370; J2405; J2720; J3370; J7030; J7040

== ENCOUNTER 2018-10-20 18:55 | Emergency (ER) | payer MEDICARE, OTHER ==
[~2018-10-20] VITALS: Ht 157.5 cm; Wt 77.6 kg
[~2018-10-20 18:55] MED LIST changes: +BACTROBAN15 G1 EXT; +NICOTINE PATCH1 EAC5 TD; +TYLENOL WITH C1 EACH PO
[2018-10-20] MEDS ORDERED: LIDOCAINE 5% PATCH TP ONE (20:00)
--- NOTE | 2018-10-20 20:46 | Diagnostic Imaging Report ---
Frontal and lateral views of the chest. HISTORY: LEFT MID BACK PAIN, COPD COMPARISON: Images from radiographs December 12, 2017 DISCUSSION: Lungs: The lungs are hyperinflated and left basilar atelectasis versus scarring. Right greater than left biapical pleural-parenchymal scarring and fibrocalcific changes. Pleura: No pleural effusion or pneumothorax. Heart and mediastinum: The cardiomediastinal silhouette appears unremarkable. Bones and soft tissues: Diffusely decreased mineralization of the osseous structures limits bone detail. Metallic surgical clips project at the right lower neck. IMPRESSION: 1. Findings compatible with chronic obstructive lung disease. 2. Stable left basilar atelectasis versus scarring. 3. No acute radiographic abnormality. Signed by: Dr. Mike Bhat D.O., M.M.M. on 10/20/2018 8:42 PM
[2018-10-20 21:09] LABS: BILIRUBIN,URINE NEGATIVE (NEGATIVE); CLARITY,URINE CLEAR (CLEAR); COLOR,URINE YELLOW (YELLOW); KETONES,URINE NEGATIVE (NEGATIVE); LEUKOCYTE ESTERASE ,URINE NEGATIVE (NEGATIVE); NITRITE,URINE NEGATIVE (NEGATIVE); PROTEIN,URINE DIPSTICK NEGATIVE (NEGATIVE); URINE UROBILINOGEN 0.2 mg/dL (0.2 - 1)
[2018-10-20 21:21] LABS: EPITHELIAL CELLS,URINE FEW /LPF; RENAL EPITHELIAL CELLS,URINE MODERATE
[2018-10-20 22:53] LABS: BASOPHILS # (AUTO) 0.1 (0.0-0.1); BASOPHILS % 0.6 % (0.0-1.0); EOSINOPHILS # (AUTO) 0.1 (0.0-0.4); EOSINOPHILS % 1.2 % (0.0-6.0); HEMATOCRIT 39.1 % (34.2-44.1); HEMOGLOBIN 12.9 g/dL (12.0-16.0); LYMPHOCYTES # (AUTO) 1.7 (1.0-3.2); LYMPHOCYTES % 20.5 % (18.0-39.1); MEAN CORPUSCULAR HEMOGLOBIN 30.6 pg (28-32); MEAN CORPUSCULAR VOLUME 92.7 fL (81-99); MONOCYTES # (AUTO) 0.6 (0.2-0.8); MONOCYTES % 6.9 % (4.4-11.3); NEUTROPHILS % 70.3 % (38.7-80.0); PLATELET COUNT 178 x10e3/uL (140-360); RED BLOOD COUNT 4.22 x10e6/uL (3.6-5.1); RED CELL DISTRIBUTION WIDTH 14.1 % (11.7-14.4)
[2018-10-20] MEDS ORDERED: LISINOPRIL 20 MG TAB PO ONE (23:00)
[2018-10-20 23:12] LABS: ALBUMIN 3.7 g/dL (3.5-5.0); ALBUMIN/GLOBULIN RATIO 1.1 (0.8-2.0); ANION GAP 13.7 mmol/L (8-16); CALCIUM 9.6 mg/dL (8.4-10.2); CREATININE, SERUM 0.97 mg/dL (0.57-1.11); POTASSIUM 4.7 mmol/L (3.5-5.1)
--- NOTE | 2018-10-20 23:18 | Diagnostic Imaging Report ---
EXAM: CT Abdomen and Pelvis WITHOUT contrast INDICATION: ABD PAIN COMPARISON: None. TECHNIQUE: Abdomen and pelvis were scanned utilizing a multidetector helical scanner from the lung base to the pubic symphysis without administration of IV contrast. Absence of intravenous contrast decreases sensitivity for detection of focal lesions and vascular pathology. Coronal and sagittal reformations were obtained. Routine protocol was performed. IV CONTRAST: None ORAL CONTRAST: Water COMPLICATIONS: None RADIATION DOSE: Total DLP: 398.89 mGy*cm Estimated effective dose: (DLP x 0.015 x size factor) mSv Dose modulation, iterative reconstruction, and/or weight based adjustment of the mA/kV was utilized to reduce the radiation dose to as low as reasonably achievable. FINDINGS: LINES and TUBES: None. LOWER THORAX: Unremarkable HEPATOBILIARY: No focal hepatic lesions. No biliary ductal dilation. GALLBLADDER: No radio-opaque stones or sludge. No wall thickening. SPLEEN: No splenomegaly. PANCREAS: No focal masses or ductal dilatation. ADRENALS: No adrenal nodules KIDNEYS/URETERS: No hydronephrosis. No cystic or solid mass lesions. Bilateral renal calculi versus vascular calcifications measuring up to 4 mm. No ureteral calculi. GI TRACT: No abnormal distention, wall thickening, or evidence of bowel obstruction. Pancolonic diverticula, severe in the sigmoid colon, without evidence of diverticulitis. Appendix is not clearly identified. There is however no fat stranding or adenopathy in the right lower quadrant to suggest appendicitis. PELVIC ORGANS/BLADDER: Hysterectomy. Distended bladder. Pelvic floor laxity. LYMPH NODES: No lymphadenopathy. VESSELS: Limited evaluation. There is severe atherosclerotic disease in the aorta and major arterial branches. Infrarenal aortic curvilinear calcifications may represent calcified mural thrombus. PERITONEUM / RETROPERITONEUM: No free air or fluid. BONES: There are degenerative changes in the lumbar spine with severe disc space narrowing at L5-S1. SOFT TISSUES: Small fat-containing infraumbilical ventral hernia without inflammation. IMPRESSION: 1. No acute abnormalities. 2. Possible nonobstructing calculi versus renal vascular calcifications. 3. Colonic diverticulosis. Signed by: DR. Homero Lau MD on 10/20/2018 11:15 PM
[2018-10-20] MEDS ORDERED: KETOROLAC TROMETHAMINE 30 MG/ML VIAL IV PRN (23:45)
[2018-10-20] MEDS ORDERED: TRAMADOL HCL100 MG PO (23:51)
--- NOTE | 2018-10-21 01:06 | NUR ---
PT REPORTS DECREASED BACK PAIN AT THIS TIME, RESP ARE EVEN AND UNLABORED, NAD NOTED
== END 2018-10-21 01:35 | disposition home or self-care (01) ==
LOC: ER 18:55
DX: M54.6 Pain in thoracic spine (principal); R07.89 Other chest pain; M54.5 Low back pain; S39.012A Strain of muscle, fascia and tendon of lower back, initial encounter
CPT/HCPCS: 36415; 71046; 74176; 80053; 81001; 85025; 99284; J1885

== ENCOUNTER → 2022-12-14 | Outpatient (CLI) | payer OTHER, MEDICARE ==
[~2022-12-14] MED LIST changes: +TRAMADOL HCL100 MG PO
== END ==
LOC: RAD 12:42
PROVIDERS: ATTEND Internal Medicine Critical Care Medicine
DX: J44.9 Chronic obstructive pulmonary disease, unspecified (principal)
CPT/HCPCS: 71046